=== PATIENT | male | born 1955 | race Caucasian/White ===

== ENCOUNTER 2016-09-05 22:00 | Emergency (ER) | payer OTHER ==
[~2016-09-05 22:00] MED LIST: ASPIR 8181 MG PO; ASPIRIN EC81 MG PO; ATROVENT INH S2.5 ML INH; AUGMENTIN 500-500 MG PO; CEFTIN500 MG PO; COLACE 100MG C100 MG PO; DOCUSATE PO; ELIQUIS5 MG PO; IMDUR ER TAB 6060 MG PO; JANUVIA 100 MG100 MG PO; K-DUR TAB 10 M10 MEQ PO; K-DUR TAB 20 M20 MEQ PO; KLONOPIN TAB 00.5 MG PO; LASIX20 MG PO; LIORESAL TAB 1010 MG PO; LIPITOR TAB 2020 MG PO; LISINOPRIL2.5 MG PO; LISINOPRIL5 MG PO; LORTAB 7.5-3251 EACH PO; MORPHINE SULFAT45 MG PO; NEURONTIN 300300 MG PO; PHENERGAN 25 MG25 M1 PO; PLAVIX 75 MG TA75 MG PO; PROMETHAZINE HC25 M1 PO; PULMICORT0.5 MG/2 M INH; RANEXA1000 MG PO; RANITIDINE HCL300 MG PO; TERAZOSIN HCL2 MG PO; TESSALON PERLE100 MG PO; TOPROL XL 25 MG25 MG PO; TOPROL XL 50 MG50 MG PO; TRAZODONE HCL100 MG PO; XOPENEX HFA15 GM INH; XOPENEX0.63 MG/3 INH; ZANTAC300 MG PO
[2016-09-05 23:15] LABS: HEMOGLOBIN 12.6 gm/dl (14.0-17.5); RED BLOOD COUNT 4.15 M/UL (4.20-5.50); WHITE BLOOD COUNT 5.2 K/UL (4.5-11.0)
[2016-09-05 23:34] LABS: BUN/CREATININE RATIO 11 (0-10)
== END 2016-09-06 04:46 | disposition home or self-care (01) ==
LOC: ER1 22:00
PROVIDERS: Family Medicine
DX: R07.89 Other chest pain (principal); R06.2 Wheezing; R06.02 Shortness of breath; J44.9 Chronic obstructive pulmonary disease, unspecified; I25.2 Old myocardial infarction; G89.29 Other chronic pain; Z79.899 Other long term (current) drug therapy
CPT/HCPCS: 36415; 71010; 80053; 82550; 82553; 83874; 84484; 85025; 93005; 94640; 94664; 96374; 96375; 99285; J2270; J2405

== ENCOUNTER → 2020-11-02 | Outpatient (CLI) | payer OTHER ==
[~2020-11-02] MED LIST changes: -ASPIR 8181 MG PO; +ASPIRIN 325MG325 MG PO; +BASAGLAR INSULIN SQ; +COL-RITE250 MG PO; +HYTRIN CAP 1 MG1 MG PO; +LOPRESSOR100 MG PO; +MACROBID 100 M100 MG PO; +NITROSTAT0.4 MG SL; +PRINIVIL5 MG PO; +RANEXA500 MG PO
== END ==
LOC: HEART 5 08-16 14:30
DX: I25.10 Atherosclerotic heart disease of native coronary artery without angina pectoris (principal); I11.9 Hypertensive heart disease without heart failure; I27.20 Pulmonary hypertension, unspecified; I07.1 Rheumatic tricuspid insufficiency; Z95.0 Presence of cardiac pacemaker
CPT/HCPCS: 93306

== ENCOUNTER → 2020-11-22 | Outpatient (CLI) | payer OTHER | LOC: HEART 5 15:16 | DX: J45.50 Severe persistent asthma, uncomplicated (principal); R06.02 Shortness of breath; R94.2 Abnormal results of pulmonary function studies; Z87.891 Personal history of nicotine dependence | CPT/HCPCS: 71046; 94060; 94729; 95012 ==

== ENCOUNTER 2021-02-02 19:57 | Observation (INO) | payer OTHER ==
[~2021-02-02] VITALS: Ht 180.3 cm; Wt 134.8 kg
[~2021-02-02 19:57] MED LIST changes: -BASAGLAR INSULIN SQ; -COL-RITE250 MG PO; -LOPRESSOR100 MG PO; -PHENERGAN 25 MG25 M1 PO; -PRINIVIL5 MG PO; -RANEXA500 MG PO
[2021-02-02 20:32] LABS: HEMOGLOBIN 13.2 gm/dl (14.0-17.5); RED BLOOD COUNT 4.21 M/UL (4.20-5.50); WHITE BLOOD COUNT 9.2 K/UL (4.5-11.0)
[2021-02-02 21:06] LABS: BUN/CREATININE RATIO 12 (0-10)
[2021-02-03 05:06] LABS: HEMOGLOBIN 12.9 gm/dl (14.0-17.5); RED BLOOD COUNT 4.25 M/UL (4.20-5.50); WHITE BLOOD COUNT 9.6 K/UL (4.5-11.0)
[2021-02-03 05:24] LABS: BUN/CREATININE RATIO 13 (0-10)
[2021-02-03] MEDS ORDERED: ISOSORBIDE MONO60 MG PO (07:38)
[2021-02-03] MEDS ORDERED: LIPITOR80 MG PO (07:40)
[2021-02-03] MEDS ORDERED: BACLOFEN20 MG PO (07:42)
[2021-02-03] MEDS ORDERED: TRAZODONE HCL100 MG PO (07:44)
[2021-02-03] MEDS ORDERED: NEURONTIN600 MG PO (07:45)
[2021-02-03] MEDS ORDERED: LOPRESSOR50 MG PO (10:13)
[2021-02-03] MEDS ORDERED: FLOMAX 0.4 MG0.4 MG PO (10:14)
[2021-02-03] MEDS ORDERED: PROTONIX 40 MG40 M1 PO (10:14)
[2021-02-03] MEDS ORDERED: BREZTRI AEROS10.7 GM INH (10:15)
[2021-02-03] MEDS ORDERED: ELIQUIS 5 MG TAB5 MG PO (10:15)
[2021-02-03] MEDS ORDERED: ALBUTEROL2.5 MG/3 M NEB (10:16)
[2021-02-03] MEDS ORDERED: PREDNISONE 10 M10 MG PO (10:16)
[2021-02-03] MEDS ORDERED: MS CONTIN15 MG PO ×2 (12:54→12:55)
[2021-02-03] MEDS ORDERED: FLONASE ALLER15.8 ML (13:02)
[2021-02-03] MEDS ORDERED: PHENERGAN 25 MG25 M1 PO (13:02)
[2021-02-03] MEDS ORDERED: COLACE CLEAR50 MG PO (13:03)
[2021-02-03] MEDS ORDERED: BETAPACE80 MG PO (15:22)
[2021-02-03] MEDS ORDERED: RANEXA1000 MG PO (15:23)
[2021-02-03] MEDS ORDERED: LANTUS SOL100 UNIT/1 SC (15:37)
[2021-02-03] MEDS ORDERED: ZESTRIL10 MG PO (23:12)
[2021-02-04 04:18] LABS: HEMOGLOBIN 13.4 gm/dl (14.0-17.5); RED BLOOD COUNT 4.34 M/UL (4.20-5.50); WHITE BLOOD COUNT 8.4 K/UL (4.5-11.0)
[2021-02-04 04:42] LABS: BUN/CREATININE RATIO 15 (0-10)
== END 2021-02-04 15:03 | disposition home or self-care (01) ==
LOC: ER1 19:57 → MED SURG 4 23:02 → CDU 23:02 → MED SURG 4 02-03 14:08
PROVIDERS: Internal Medicine; Physician Assistant; ADMIT Internal Medicine
DX: G47.419 Narcolepsy without cataplexy (principal); E66.01 Morbid (severe) obesity due to excess calories; J44.9 Chronic obstructive pulmonary disease, unspecified; I25.10 Atherosclerotic heart disease of native coronary artery without angina pectoris; I10 Essential (primary) hypertension; E11.9 Type 2 diabetes mellitus without complications; J96.20 Acute and chronic respiratory failure, unspecified whether with hypoxia or hypercapnia; Z95.810 Presence of automatic (implantable) cardiac defibrillator; Z20.822 Contact with and (suspected) exposure to COVID-19; G89.4 Chronic pain syndrome; F11.20 Opioid dependence, uncomplicated; Z95.5 Presence of coronary angioplasty implant and graft; N40.0 Benign prostatic hyperplasia without lower urinary tract symptoms; Z79.4 Long term (current) use of insulin; Z79.01 Long term (current) use of anticoagulants; G47.33 Obstructive sleep apnea (adult) (pediatric); F17.220 Nicotine dependence, chewing tobacco, uncomplicated; R44.2 Other hallucinations; R94.31 Abnormal electrocardiogram [ECG] [EKG]; E78.5 Hyperlipidemia, unspecified
CPT/HCPCS: 36415; 36600; 70450; 71045; 71250; 80048; 80053; 81001; 82550; 82553; 82803; 82962; 83036; 83874; 83880; 84484; 85025; 85027; 87086; 93005; 94640; 94664; 94760; 96374; 99285; G0378; J1335; U0002

== ENCOUNTER 2021-10-16 14:11 | Observation (INO) | payer OTHER ==
[~2021-10-16] VITALS: Ht 180.3 cm; Wt 142.0 kg
[~2021-10-16 14:11] MED LIST changes: +ALBUTEROL2.5 MG/3 M NEB; +BACLOFEN20 MG PO; +BETAPACE80 MG PO; +BREZTRI AEROS10.7 GM INH; +COLACE100 MG PO; +ELIQUIS 5 MG TAB5 MG PO; +FLOMAX 0.4 MG0.4 MG PO; +FLONASE ALLER15.8 ML; +ISOSORBIDE MONO60 MG PO; +LANTUS SOL100 UNIT/1 SC; +LASIX40 MG PO; +LIPITOR80 MG PO; +LOPRESSOR50 MG PO; +MS CONTIN15 MG PO; +NEURONTIN800 MG PO; +PHENERGAN 25 MG25 M1 PO; +POTASSIUM CHLO10 ME2 PO; +PREDNISONE 10 M10 MG PO; +PROTONIX 40 MG40 M1 PO; +ZESTRIL20 MG PO
[2021-10-16 15:24] LABS: HEMOGLOBIN 14.9 gm/dl (14.0-17.5); RED BLOOD COUNT 4.72 M/UL (4.20-5.50); WHITE BLOOD COUNT 8.7 K/UL (4.5-11.0)
[2021-10-16 15:46] LABS: BUN/CREATININE RATIO 16 (0-10)
[2021-10-16] MEDS ORDERED: NEURONTIN800 MG PO (18:17)
[2021-10-16] MEDS ORDERED: AZELASTINE137 MCG/0. (18:18)
[2021-10-16] MEDS ORDERED: IPRAT-ALBUT 0.5-3 ML INH (18:19)
[2021-10-16] MEDS ORDERED: ROPINIROLE HCL0.5 MG PO (18:20)
[2021-10-16] MEDS ORDERED: HYDROCODON-ACE1 EAC2 PO (18:21)
[2021-10-17 06:47] LABS: HEMOGLOBIN 14.8 gm/dl (14.0-17.5); RED BLOOD COUNT 4.7 M/UL (4.20-5.50); WHITE BLOOD COUNT 8.7 K/UL (4.5-11.0)
[2021-10-18 01:48] LABS: HEMOGLOBIN 14.3 gm/dl (14.0-17.5); RED BLOOD COUNT 4.56 M/UL (4.20-5.50); WHITE BLOOD COUNT 8.7 K/UL (4.5-11.0)
[2021-10-18] MEDS ORDERED: ISOSORBIDE MONO30 MG PO (13:39)
== END 2021-10-18 15:49 | disposition home or self-care (01) ==
LOC: ER1 14:11 → CDU 17:36 → PROG CARE 17:36
PROVIDERS: Internal Medicine; Nurse Practitioner; Physician Assistant Medical; ADMIT Internal Medicine
DX: R07.89 Other chest pain (principal); I25.10 Atherosclerotic heart disease of native coronary artery without angina pectoris; I11.0 Hypertensive heart disease with heart failure; I50.22 Chronic systolic (congestive) heart failure; E78.5 Hyperlipidemia, unspecified; I25.5 Ischemic cardiomyopathy; G89.4 Chronic pain syndrome; N40.0 Benign prostatic hyperplasia without lower urinary tract symptoms; I25.2 Old myocardial infarction; F41.9 Anxiety disorder, unspecified; E11.42 Type 2 diabetes mellitus with diabetic polyneuropathy; J44.9 Chronic obstructive pulmonary disease, unspecified; K21.9 Gastro-esophageal reflux disease without esophagitis; E66.01 Morbid (severe) obesity due to excess calories; Z95.5 Presence of coronary angioplasty implant and graft; Z87.891 Personal history of nicotine dependence; Z68.41 Body mass index [BMI] 40.0-44.9, adult; Z79.82 Long term (current) use of aspirin; Z79.02 Long term (current) use of antithrombotics/antiplatelets; Z79.01 Long term (current) use of anticoagulants; Z79.4 Long term (current) use of insulin; Z79.899 Other long term (current) drug therapy; Z20.822 Contact with and (suspected) exposure to COVID-19
CPT/HCPCS: 0240U; 36415; 71045; 73030; 78452; 80048; 80053; 81001; 82150; 82550; 82553; 82962; 83690; 83735; 83880; 84484; 85025; 85027; 85610; 85730; 87086; 93005; 93017; 93970; 94640; 94760; 96374; 96375; 96376; 99285; A9502; G0378; J0696; J1644; J2270; J2405; J2785; Q9967